=== PATIENT | female | born 1935 | race Hispanic/Latino ===

== ENCOUNTER 2018-05-21 11:03 | Outpatient (CLI) | payer MEDICARE, MEDICAID ==
--- NOTE | 2018-05-21 12:20 | RAD ---
TWO VIEWS OF THE CHEST: Comparison: 12-13-15 History: Dyspnea. FINDINGS: Two views of the chest shows a normal sized cardiomediastinal silhouette. There is no evidence of con solidation, mass, or pleural effusion. The bones are unremarkable. IMPRESSION: No evidence of acute cardiopulmonary disease. POS: [facility]
== END 2018-05-21 11:04 | disposition home or self-care (01) ==
LOC: RAD 11:03
PROVIDERS: ATTEND Internal Medicine Critical Care Medicine
DX: R06.00 Dyspnea, unspecified (principal)
CPT/HCPCS: 71046

== ENCOUNTER 2020-11-07 14:49 | Observation (INO) | payer MEDICARE, OTHER ==
[~2020-11-07 14:49] MED LIST: Iopamidol-370 76% 500 ML 1 ML ONE
--- NOTE | 2020-11-07 15:48 | RAD ---
XR Chest 1 View Portable HISTORY: Dyspnea COMPARISON: 05/21/2018 FINDINGS: The heart size is normal. The aorta is tortuous. The lungs are well expanded without focal areas of consolidation, pneumothorax or pleural effusions. IMPRESSION: No radiographic evidence of acute cardiopulmonary process.
[2020-11-07 16:31] LABS: #Basophils 0.1 thou/uL (0.0-0.2); #Eosinphils 0.1 thou/uL (0.0-0.7); #Lymphocytes 1.6 thou/uL (1.20-3.40); #Monocytes 0.4 thou/uL (0.11-0.59); #Neutrophils 3.4 thou/uL (1.40-6.50); %Eosinophils 2.3 % (0.0-10.0); %Lymphocytes 28.7 % (21.0-51.0); %Monocytes 6.3 % (0.0-10.0); %Neutrophils 61.7 % (42.0-75.0); Hemoglobin 15.7 g/dL (12.0-16.0); Mean Corpuscular HGB CONC 35.6 g/dL (32.0-36.0); Mean Corpuscular Hemoglobin 34.5 pg (27.0-31.0); Mean Corpuscular Volume 96.9 fL (78.0-98.0); Mean Platelet Volume 6.7 fL (7.4-10.4); Platelet Count 242 thou/uL (130-400); RBC Distribution Width 11.4 % (11.5-14.5); Red Blood Cell (RBC) Count 4.55 mill/uL (4.20-5.40); White Blood Cell (WBC) Count 5.6 thou/uL (4.8-10.8)
[2020-11-07 16:59] LABS: ALT (SGPT) 9 U/L (8-55); AST (SGOT) 17 U/L (5-34); Albumin 4.1 g/dL (3.4-4.8); Alkaline Phosphatase 86 U/L (40-110); Anion Gap 13 mmol/L (10-20); BUN (Urea Nitrogen) 10 mg/dL (9.8-20.1); Bilirubin, Total 0.5 mg/dL (0.2-1.2); Calc. Creatinine Clearance 0 mL/min (70-130); Carbon Dioxide 32 mmol/L (23-31); Chloride 97 mmol/L (98-107); Globulin 3.1 g/dL (2.4-3.5); Glucose 101 mg/dL (83-110); Potassium 3.6 mmol/L (3.5-5.1); Protein, Total 7.2 g/dL (5.8-8.1); Sodium 138 mmol/L (136-145)
[2020-11-07 17:21] LABS: CKMB 1.4 ng/mL (0-6.6)
[2020-11-07 18:32] LABS: Bilirubin Negative (Negative); Blood, Urine Negative (Negative); Clarity Clear (Clear); Glucose, Urine (Dipstick) Normal (Negative); Ketone, Urine Negative (Negative); Leukocyte Negative Leu/uL (Negative); Nitrite Negative (Negative); Protein, Urine (Dipstick) 10 mg/dL (Neg-Trace); Specific Gravity, Urine 1.014 (1.002-1.036); Urobilinogen 3 mg/dL (Less than 2)
--- NOTE | 2020-11-07 21:08 | CT ---
CT Brain WO Con: 11/07/2020 8:45 PM CLINICAL HISTORY: Weakness and falls. IMAGING TECHNIQUE: Multiple CT images were obtained of the brain without IV contrast. COMPARISON: CT the brain without contrast dated April 17, 2018 FINDINGS: BRAIN: Evidence of acute infarct: None. Evidence of chronic ischemic change:There is moderate chronic small vessel white matter ischemic fritz ge. There are tiny remote appearing lacunar infarctions involving basal ganglia bilaterally which appears stable Evidence of intracranial hemorrhage: None. Evidence of brain volume loss:Mild generalized cerebral atrophy is similar Evidence of midline shift: Third ventricle and septum pellucidum are midline. Ventricles: Normal. No hydrocephalus. SKULL: Intact. VISUALIZED PARANASAL SINUSES: Small air-fluid level is present within the right sphenoid sinus. MASTOID AIR CELLS: Clear. EXTRACRANIAL SOFT TISSUES: Normal. IMPRESSION: 1. No acute intracranial abnormality. 2. Small air-fluid level within the right sphenoid sinus may reflect mild sphenoid sinusitis. 3. Chronic ischemic change as above.
--- NOTE | 2020-11-07 21:36 | CT ---
CT OF THE ABDOMEN AND PELVIS WITH IV CONTRAST INDICATION: 85-year-old female with vomiting and weakness COMPARISON: Pelvic ultrasound dated August 30, 2016 FINDINGS: ABDOMEN: Lung bases: There is mild subsegmental volume loss within both lower lobes, left greater than right Liver: No focal lesion. Gallbladder: Surgically absent Pancreas: Normal. Adrenal glands: Normal. Spleen: Normal. Kidneys and ureters: There are tiny hypodensities involving the kidney suspicious for tiny cysts. No hydronephrosis. Vasculature: There are severe vascular calcifications seen involving the visualized vasculature. Ther e is a 1 cm splenic artery aneurysm involving the mid splenic artery on image 32 of series 2. There is mild ectasia involving the distal abdominal aorta measuring 2.7 cm. Lymph nodes:No lymphadenopathy. Free fluid in abdomen:No free fluid is evident. PELVIS: Small and large bowel: There are scattered colonic diverticulosis without evidence of active divertic ulitis. There is a mild amount retained stool within the colon. Appendix:Normal Bladder: Normal. Rectal and perirectal soft tissues:Normal. Reproductive structures: The uterus is surgically absent. The adnexa are not definitely seen. There i s a slightly hypodense cystlike lesion involving the right hemipelvis, adjacent to the right posterior lateral aspect of the bladder measuring 6.9 x 5 5 cm. Free fluid in pelvis: No free fluid is evident. Lymphadenopathy pelvis: No lymphadenopathy is evident. Osseous structures: No acute osseous abnormality. No destructive osteolytic or osteoblastic lesion i s identified. There is levoscoliosis of the lumbar spine. No acute fracture or subluxation is demonstrated. There is scattered degenerative and osteoarthritic change present. Soft tissues:Normal. IMPRESSION: 1. Large cystlike lesion involving the right hemipelvis, adjacent to the right posterior lateral aspe ct of the bladder. This was not identified on a prior pelvic ultrasound in 2016. Differential considerations include a complex cystic mass of the right adnexa or possibly a diverticulum off the p osterior lateral aspect of the bladder. Further evaluation with pelvic ultrasound is recommended for additional characterization. The uterus is surgically absent. The adnexa are not definitely seen. Recommend correlation with the patient's clinical history of possible hysterectomy and bilateral oophorectomy. 2. Colonic diverticulosis with a mild amount retained stool within the colon. 3. Bilateral renal hypodensities, too small to fully characterize, suspicious for cysts. 4. 1 cm splenic artery aneurysm and mild ectasia of the distal abdominal aorta.
--- NOTE | 2020-11-07 22:03 | PDOC.HHP ---
Hospitalist HPI Generalized weakness History of Present Illness: Majority of the H&P was taken from the ER documentation due to the patient's past medical history of dementia. The patient is an 85-year-old female with a past medical history significant for CAD, HTN, HLD, CVA (2016), emphysema, chronic back pain, polymyalgia rheumatica, dementia and anxiety and depression that presents to the emergency department for the above complaint. The patient comes with a chief complaint of generalized weakness. There is reports of na usea without vomiting or abdominal pain. Per the triage documentation, the patient may have been hypoxic at home. However, the patient presented to the emergency department with oxygen saturation ranging from 98 to 100% on room air. ED Course: VITAL SIGNS SatNov 07, 2020 14:51 MELVINA Keene Katelyn BP: 130/65, Resp: 28, Temp: 98.1 (Oral), O2 sat: 93 on (Room Air), Time: 11/07/2020 14:51. VITAL SIGNS SatNov 07, 2020 14:56 MELVINA Keene Katelyn Resp: 24, Pain: 0, Time: 11/07/2020 14:56. VITAL SIGNS SatNov 07, 2020 15:25 MELVINA Win Jenifer BP: 136/68, Pulse: 68, Resp: 24, Pain: 0, O2 sat: 100 on (Room Air), Time: 11/07/2020 15:25. VITAL SIGNS SatNov 07, 2020 18:22 MELVINA Mas Nazish BP: 164/71, Pulse: 70, Resp: 19, Temp: 98.4 (Oral), Pain: 0, O2 sat: 100 on (Room Air), Time: 11/07/2020 18:22. VITAL SIGNS SatNov 07, 2020 19:31 MELVINA Mas Nazish BP: 151/73, Pulse: 67, Resp: 19, Temp: 98.2 (Oral), Pain: 0, O2 sat: 100 on (Room Air), Time: 11/07/2020 19:31. EKG normal sinus rhythm with LVH. Initial troponin 0.039, BNP 65 CXR no acute process CT brain negative for any acute process CT abdomen and pelvis showed cystlike lesion in the right hemipelvis, recommends ultrasound CMP, UA and CBC unremarkable Medications: 1L NS Allergies/Adverse Reactions: Allergy/AdvReac Type Severity Reaction Status Date / Time ibuprofen Allergy Verified 12/06/19 11:35 Home Medications: Medication Instructions Recorded Confirmed Type ALPRAZolam [Xanax] 0.25 mg PO TID PRN 04/24/16 04/17/18 History Budesonide-Formoterol [Symbicort 2 puff INH BID 04/24/16 04/17/18 History 160-4.5] Clopidogrel Bisulfate [Clopidogrel] 75 mg PO DAILY 04/24/16 04/17/18 History DULoxetine HCl 60 mg PO BID 04/24/16 04/17/18 History Gabapentin 300 mg PO TID 04/24/16 04/17/18 History Zolpidem Tartrate 10 mg PO HS 04/24/16 04/17/18 History Donepezil HCl [Aricept] 10 mg PO HS 04/17/18 04/17/18 History OLANZapine [Olanzapine] 15 mg PO HS 04/17/18 04/17/18 History traZODone HCl [Trazodone HCl] 100 mg PO HS PRN 04/17/18 04/17/18 History Amoxicillin/Potassium Clav 875 mg PO Q12HR #10 tab 04/20/18 Rx [Augmentin] Aspirin 325 mg PO DAILY #0 04/20/18 04/17/18 Rx Famotidine [Pepcid] 20 mg PO BID #60 tab 04/20/18 Rx Saccharomyces boulardii [Florastor] 250 mg PO DAILY #5 cap 04/20/18 Rx Ventolin HFA Inhaler 2 puff INH Q6HR PRN #1 inh 04/20/18 Rx guaiFENesin ER [Mucinex] 600 mg PO Q12HR #10 tab 04/20/18 Rx predniSONE 20 mg PO QAM-WM #5 tab 04/20/18 Rx Past History: PMHx: CAD, HTN, HLD, CVA (2016), emphysema, chronic back pain, polymyalgia rheumatica, dementia, anxiety and depression PSHx: Cholecystectomy, hysterectomy, oophorectomy FHx: Noncontributory to this case Social: 1 pack/day smoker x30 years. No heavy alcohol intake or illicit drug use. Hospitalist HPI ROS ROS unobtainable: due to mental status All other systems reviewed; all pertinent +/- noted in HPI/Subj Hospitalist Exam General Appearance: NAD, awake alert. negative: ill appearing General - other findings: Appears comfortable Eye: anicteric sclera ENT: normocephalic atraumatic, moist mucosa Neck: supple, no lymphadenopathy Heart: RRR, no murmur, no gallops, no rubs, normal peripheral pulses Respiratory: CTAB, no wheezes, no rales, no ronchi, no tachypnea Respiratory - other findings: Diminished lower lobes Gastrointestinal: soft, non-distended, normal bowel sounds, no guarding, no rigidity, tender to palpation (Mild tenderness to palpation of right lower quadrant) Gastrointestinal - other findings: No rebound tenderness, negative Rovsing sign, negative Falk sign Extremities: no cyanosis, no edema Skin: no rashes Psychiatric: normal affect, oriented to person (And date of ). negative: oriented to place (Poor historian) Hospitalist Results Result Diagrams: 11/07/20 16:10 11/07/20 16:10 Lab results: Laboratory Last Values WBC 5.6 thou/uL (4.8-10.8) 11/07/20 16:10 RBC 4.55 mill/uL (4.20-5.40) 11/07/20 16:10 Hgb 15.7 g/dL (12.0-16.0) 11/07/20 16:10 Hct 44.2 % (36.0-47.0) 11/07/20 16:10 MCV 96.9 fL (78.0-98.0) 11/07/20 16:10 MCH 34.5 pg (27.0-31.0) H 11/07/20 16:10 MCHC 35.6 g/dL (32.0-36.0) 11/07/20 16:10 RDW 11.4 % (11.5-14.5) L 11/07/20 16:10 Plt Count 242 thou/uL (130-400) 11/07/20 16:10 MPV 6.7 fL (7.4-10.4) L 11/07/20 16:10 Neutrophils % 61.7 % (42.0-75.0) 11/07/20 16:10 Lymphocytes % 28.7 % (21.0-51.0) 11/07/20 16:10 Monocytes % 6.3 % (0.0-10.0) 11/07/20 16:10 Eosinophils % 2.3 % (0.0-10.0) 11/07/20 16:10 Basophils % 1.0 % (0.0-1.0) 11/07/20 16:10 Neutrophils # 3.4 thou/uL (1.40-6.50) 11/07/20 16:10 Lymphocytes # 1.6 thou/uL (1.20-3.40) 11/07/20 16:10 Monocytes # 0.4 thou/uL (0.11-0.59) 11/07/20 16:10 Eosinophils # 0.1 thou/uL (0.0-0.7) 11/07/20 16:10 Basophils # 0.1 thou/uL (0.0-0.2) 11/07/20 16:10 Sodium 138 mmol/L (136-145) 11/07/20 16:10 Potassium 3.6 mmol/L (3.5-5.1) 11/07/20 16:10 Chloride 97 mmol/L (98-107) L 11/07/20 16:10 Carbon Dioxide 32 mmol/L (23-31) H 11/07/20 16:10 Anion Gap 13 mmol/L (10-20) 11/07/20 16:10 BUN 10 mg/dL (9.8-20.1) 11/07/20 16:10 Creatinine 0.74 mg/dL (0.6-1.1) 11/07/20 16:10 Estimated GFR (MDRD) 75 11/07/20 16:10 Glucose 101 mg/dL (83-110) 11/07/20 16:10 Calcium 9.0 mg/dL (7.8-10.44) 11/07/20 16:10 Total Bilirubin 0.5 mg/dL (0.2-1.2) 11/07/20 16:10 AST 17 U/L (5-34) 11/07/20 16:10 ALT 9 U/L (8-55) 11/07/20 16:10 Alkaline Phosphatase 86 U/L (40-110) 11/07/20 16:10 CK-MB (CK-2) 1.4 ng/mL (0-6.6) 11/07/20 16:10 Troponin I 0.039 ng/mL (< 0.028) H 11/07/20 16:10 B-Natriuretic Peptide 65.5 pg/mL (0-100) 11/07/20 16:10 Serum Total Protein 7.2 g/dL (5.8-8.1) 11/07/20 16:10 Albumin 4.1 g/dL (3.4-4.8) 11/07/20 16:10 Globulin 3.1 g/dL (2.4-3.5) 11/07/20 16:10 Albumin/Globulin Ratio 1.3 g/dL (1.2-2.2) 11/07/20 16:10 Urine Color Yellow (Yellow) 11/07/20 17:49 Urine Clarity Clear (Clear) 11/07/20 17:49 Urine pH 8.0 (5.0-9.0) 11/07/20 17:49 Ur Specific [place] 1.014 (1.002-1.036) 11/07/20 17:49 Urine Protein 10 mg/dL (Neg-Trace) 11/07/20 17:49 Urine Glucose (UA) Normal mg/dL (Negative) 11/07/20 17:49 Urine Ketones Negative mg/dL (Negative) 11/07/20 17:49 Urine Blood Negative (Negative) 11/07/20 17:49 Urine Nitrite Negative (Negative) 11/07/20 17:49 Urine Bilirubin Negative (Negative) 11/07/20 17:49 Urine Urobilinogen 3 mg/dL (Less than 2) A 11/07/20 17:49 Ur Leukocyte Esterase Negative Jailyn/uL (Negative) 11/07/20 17:49 Chest x-ray Status: report reviewed by me Additional Comments: IMPRESSION: No radiographic evidence of acute cardiopulmonary process. CT scan - head Status: report reviewed by me Additional Comments: IMPRESSION: 1. No acute intracranial abnormality. 2. Small air-fluid level within the right sphenoid sinus may reflect mild sphenoid sinusitis. 3. Chronic ischemic change as above CT scan - Ab/Pelvis Status: report reviewed by me Additional Comments: IMPRESSION: 1. Large cystlike lesion involving the right hemipelvis, adjacent to the right posterior lateral aspect of the bladder. This was not identified on a prior pelvic ultrasound in 2016. Differential considerations include a complex cystic mass of the right adnexa or possibly a diverticulum off the posterior lateral aspect of the bladder. Further evaluation with pelvic ultrasound is recommended for additional characterization. The uterus is surgically absent. The adnexa are not definitely seen. Recommend correlation with the patients clinical history of possible hysterectomy and bilateral oophorectomy. 2. Colonic diverticulosis with a mild amount retained stool within the colon. 3. Bilateral renal hypodensities, too small to fully characterize, suspicious for cysts. 4. 1 cm splenic artery aneurysm and mild ectasia of the distal abdominal aorta. EKG Status: image reviewed by me Additional Comments: Normal sinus rhythm, LVH Hospitalist H&P A/P (1) Elevated troponin Code(s): R77.8 - OTHER SPECIFIED ABNORMALITIES OF PLASMA PROTEINS Status: Acute (2) Pelvic mass Code(s): R19.00 - INTRA-ABD AND PELVIC SWELLING, MASS AND LUMP, UNSP SITE Status: Acute (3) Generalized weakness Code(s): R53.1 - WEAKNESS Status: Acute (4) CAD (coronary artery disease) Code(s): I25.10 - ATHSCL HEART DISEASE OF [place] CORONARY ARTERY W/O ANG PCTRS Status: Chronic Qualifiers: Coronary Disease-Associated Artery/Lesion type: [place] artery [place] vs. transplanted heart: [place] heart Associated angina: without angina Qualified Code(s): I25.10 - Atherosclerotic heart disease of [place] coronary artery without angina pectoris (5) CVA (cerebral vascular accident) Code(s): I63.9 - CEREBRAL INFARCTION, UNSPECIFIED Status: Chronic (6) Polymyalgia rheumatica Code(s): M35.3 - POLYMYALGIA RHEUMATICA Status: Chronic (7) Dementia Code(s): F03.90 - UNSPECIFIED DEMENTIA WITHOUT BEHAVIORAL DISTURBANCE Status: Chronic (8) Anxiety and depression Code(s): F41.9 - ANXIETY DISORDER, UNSPECIFIED; F32.9 - MAJOR DEPRESSIVE DISORDER, SINGLE EPISODE, UNSPECIFIED Status: Chronic (9) Emphysema of lung Code(s): J43.9 - EMPHYSEMA, UNSPECIFIED Status: Chronic (10) Chronic back pain Code(s): M54.9 - DORSALGIA, UNSPECIFIED; G89.29 - OTHER CHRONIC PAIN Status: Chronic (11) HTN (hypertension) Code(s): I10 - ESSENTIAL (PRIMARY) HYPERTENSION Status: Chronic (12) HLD (hyperlipidemia) Code(s): E78.5 - HYPERLIPIDEMIA, UNSPECIFIED Status: Chronic Plan: The patient with CAD, polymyalgia rheumatica, dimension, history of CVA, eczema presents for generalized weakness and possibly hypoxic at home. Presented mildly tachypneic, SPO2 WNL. EKG NSR. CT brain negative. CT abdomen pelvis shows right hemipelvis cystlike lesion. Initial troponin 0.39. CMP, CBC and UA unremarkable. #Elevated troponin Appears baseline upon reviewing records. No documented chest pain. Trend troponins, check TSH, FLP, mag level and lipase. #Pelvic mass CT shows large cystlike lesion involving the right hemipelvis adjacent to right posterior lateral aspect of bladder. Recommends pelvic ultrasound. Upon assessment, mildly tender to palpation right lower quadrant. Order pelvic ultrasound. #General weakness Unclear etiology at this time. Upon assessment, patient feels comfortable, MAEW. #CAD Review previous home med list, takes amlodipine, aspirin and Plavix. Will restart home medications when reconciled by nursing. #CVA Chronic, stable (2016) #Polymyalgia rheumatica Chronic. Previously on chronic steroids. We will restart home medications when reconciled by nursing. #Dementia Unknown baseline. Upon assessment ANO x2, follows commands. Previous home med list, donepezil. Restart home medications when reconciled by nursing. #Anxiety and depression Previous home med list shows duloxetine, Abilify, olanzapine. Restart home meds when reconciled by nursing. SCDs for DVT prophylaxis. Pepcid for GI prophylaxis. CODE STATUS full code. Her son, Yayo Sandhu is contact, however, I was unable to speak with him via telephone at the number listed which is [phone]. Discussed case with attending physician, Dr. Aguilar, who agrees with plan of care.
[2020-11-07] MEDS ORDERED: Acetaminophen 325 MG TAB PO PRN (22:44)
[2020-11-07] MEDS ORDERED: Ondansetron ODT 4 MG TAB PO PRN (22:44)
[2020-11-07 22:58] LABS: Troponin I 0.044 ng/mL (< 0.028)
[2020-11-08 01:58] LABS: Troponin I 0.039 ng/mL (< 0.028)
[2020-11-08] MEDS ORDERED: traZODone HCl 50 MG TAB PO SCH (02:30)
[2020-11-08 02:36] VITALS: BMI 21.7
[2020-11-08 05:16] LABS: SARS-CoV-2 PCR by NAA Not Detected (NotDetected)
[2020-11-08 06:12] LABS: #Basophils 0.1 thou/uL (0.0-0.2); #Eosinphils 0.2 thou/uL (0.0-0.7); #Monocytes 0.4 thou/uL (0.11-0.59); #Neutrophils 3.6 thou/uL (1.40-6.50); %Basophils 1.6 % (0.0-1.0); %Eosinophils 2.5 % (0.0-10.0); %Lymphocytes 31.5 % (21.0-51.0); %Monocytes 6.1 % (0.0-10.0); %Neutrophils 58.4 % (42.0-75.0); Hemoglobin 14.7 g/dL (12.0-16.0); Mean Corpuscular HGB CONC 35.2 g/dL (32.0-36.0); Mean Corpuscular Hemoglobin 34.3 pg (27.0-31.0); Mean Corpuscular Volume 97.5 fL (78.0-98.0); Mean Platelet Volume 6.7 fL (7.4-10.4); Platelet Count 217 thou/uL (130-400); RBC Distribution Width 11.3 % (11.5-14.5); Red Blood Cell (RBC) Count 4.28 mill/uL (4.20-5.40); White Blood Cell (WBC) Count 6.2 thou/uL (4.8-10.8)
[2020-11-08 06:30] LABS: Anion Gap 11 mmol/L (10-20); BUN (Urea Nitrogen) 7 mg/dL (9.8-20.1); Calc. Creatinine Clearance 52 mL/min (70-130); Calcium 8.7 mg/dL (7.8-10.44); Carbon Dioxide 31 mmol/L (23-31); Cardiac Risk 4.2 (Less than 4.5); Chloride 99 mmol/L (98-107); Cholesterol 138 mg/dl (< 200 Desired); Glucose 94 mg/dL (83-110); HDL Cholesterol 33 mg/dL (>60 Neg Risk); LDL Cholesterol, Calculated 79 mg/dL; Magnesium 2.1 mg/dL (1.6-2.6); Potassium 3.3 mmol/L (3.5-5.1); Sodium 138 mmol/L (136-145); Triglycerides 130 mg/dL (Less than 150)
[2020-11-08] MEDS ORDERED: Famotidine 20 MG TAB ONE (07:59)
[2020-11-08] MEDS ORDERED: Famotidine 20 MG TAB PO SCH (09:00)
--- NOTE | 2020-11-08 10:35 | ULT ---
Transabdominal pelvic ultrasound: 11/08/2020 HISTORY: Vomiting and weakness, lesion within the right hemipelvis noted on prior CT. TECHNIQUE: Multiplanar grayscale sonographic imaging of the pelvis is obtained with transabdominal im aging. FINDINGS: The uterus is surgically absent. The left ovary could not be visualized on this exam. No free fluid is seen in the pelvis. Within the right hemipelvis there is an oval hypoechoic lesion with increased through transmission an d no internal blood flow suggesting a nonspecific right adnexal cystic lesion measuring 7.1 x 4.0. This lesion is assessed with Doppler interrogation including color flow and spectral analysis and the re is venous and arterial blood flow around the periphery of this lesion which may signify ovarian tissue. IMPRESSION: Cystic lesion within the right hemipelvis measuring up to 7.1 cm, suspicious for a cystic ovarian lesion. 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 Recommend REGISTERED RESPIRATORY TECHNICIAN consultation. MERCEDES T
[2020-11-08] MEDS ORDERED: Potassium Chloride 20 MEQ TAB PO SCH (12:30)
--- NOTE | 2020-11-08 12:55 | PDOC.DS.DS ---
Provider Date of Admission: 11/07/20 22:11 Date of Discharge: 11/08/20 Admitting Provider: Bin Aguilar MD Primary Care Physician: Liudmila Noe MD Course Hospital Course: Discharge diagnosis: 1. Generalized weakness 2. Cystic ovarian mass 3. COVID-19 test negative 4. Hypokalemia 5. Troponin in the indeterminate range, no chest pain Hospital course: Patient is a pleasant 85-year-old lady who was admitted to the hospital on observation status on November 07, 2020 for generalized weakness. Per the triads documentation, patient may have been hypoxic at home. However, patient's oxygen saturation was good in the emergency room. She was seen by physical therapy service. She mainly needed assistance getting out of the bed but otherwise ambulated well. Patient son stays with her in an assisted living facility and is able to help her get out of bed. CT scan of the abdomen and pelvis with IV contrast showed large cystlike lesion involving the right hemipelvis, adjacent to the right posterior lateral aspect of the bladder. This was not identified on a prior pelvic ultrasound in 2016. She also had colonic diverticulosis, bilateral renal hypodensities too small to fully characterize but suspicious for cysts and 1 cm splenic artery aneurysm and mild ectasia of the distal abdominal aorta. She went on to have pelvic ultrasound, which showed cystic lesion within the right hemipelvis measuring up to 7.1 cm, suspicious for cystic ovarian lesion. Lesion of this size in a patient of this age may signify a cystic ovarian neoplasm, according to radiologist. The recommended gynecology consultation. Patient is advised to see gynecology referral through primary care provider. It was unclear what medications patient was taking at home prior to this emergency room visit. Patient was advised to resume her home medications. Patient is being discharged home in a stable condition. Many thanks for allowing me to participate in your patient's care. Please feel free to contact me with any questions or concerns. Resuscitation Status: 11/07/20 22:44 Resuscitation Status Routine Co-Sign Provider: Resuscitation Status: FULL: Full Resuscitation Discussed with: patient Additional comments: Unable to get in contact with patient's sonYayo at list phone number of [phone] Lab Results: 11/08/20 05:48 11/08/20 05:48 Abnormal Lab Results - Last 48 hrs 11/07/20 16:10: Chloride 97 L, Carbon Dioxide 32 H 11/07/20 16:10: Troponin I 0.039 H 11/07/20 16:10: MCH 34.5 H, RDW 11.4 L, MPV 6.7 L 11/07/20 17:49: Urine Urobilinogen 3 A 11/07/20 22:19: Troponin I 0.044 H 11/08/20 01:25: Troponin I 0.039 H 11/08/20 05:48: Potassium 3.3 L, BUN 7 L 11/08/20 05:48: MCH 34.3 H, RDW 11.3 L, MPV 6.7 L, Basophils % 1.6 H Vitals: Vital Signs (12 hours) Pulse Resp BP Pulse Ox 11/08/20 04:19 64 20 145/62 H 94 L Weight Weight 114 lb 10.246 oz Physical Exam: The patient was seen and examined on the day of discharge. Patient denies chest pain or shortness of breath. Vital signs are stable. S1 and S2 are heard. Lungs are clear to auscultation bilaterally. Plan Home Medications: Medication Instructions Recorded Confirmed Type ALPRAZolam [Xanax] 0.25 mg PO TID PRN 04/24/16 04/17/18 History Budesonide-Formoterol [Symbicort 2 puff INH BID 04/24/16 04/17/18 History 160-4.5] Clopidogrel Bisulfate [Clopidogrel] 75 mg PO DAILY 04/24/16 04/17/18 History DULoxetine HCl 60 mg PO BID 04/24/16 04/17/18 History Gabapentin 300 mg PO TID 04/24/16 04/17/18 History Zolpidem Tartrate 10 mg PO HS 04/24/16 04/17/18 History Donepezil HCl [Aricept] 10 mg PO HS 04/17/18 04/17/18 History OLANZapine [Olanzapine] 15 mg PO HS 04/17/18 04/17/18 History traZODone HCl [Trazodone HCl] 100 mg PO HS PRN 04/17/18 04/17/18 History Amoxicillin/Potassium Clav 875 mg PO Q12HR #10 tab 04/20/18 Rx [Augmentin] Aspirin 325 mg PO DAILY #0 04/20/18 04/17/18 Rx Famotidine [Pepcid] 20 mg PO BID #60 tab 04/20/18 Rx Saccharomyces boulardii [Florastor] 250 mg PO DAILY #5 cap 04/20/18 Rx Ventolin HFA Inhaler 2 puff INH Q6HR PRN #1 inh 04/20/18 Rx guaiFENesin ER [Mucinex] 600 mg PO Q12HR #10 tab 04/20/18 Rx predniSONE 20 mg PO QAM-WM #5 tab 04/20/18 Rx Allergies: ibuprofen Allergy (Verified 12/06/19 11:35) Discharge Instructions:: Resume your home medications. Seek referral for gynecology consultation through primary care provider for probable ovarian neoplasm. Referrals: Liudmila Noe MD [Primary Care Provider] - 3 Days Disposition: HOME Quality CORE MEASURES:: N/A
[2020-11-08 13:16] VITALS: BP 151/80; TEMP 97.8
[2020-11-08] MEDS ORDERED: Potassium Chloride 20 MEQ TAB ONE (13:32)
== END 2020-11-08 14:08 | disposition home or self-care (01) ==
LOC: ERS 14:49 → ERHOLD 22:11
PROVIDERS: ADMIT Internal Medicine; ATTEND Internal Medicine
DX: R53.1 Weakness (principal); N83.201 Unspecified ovarian cyst, right side; E87.6 Hypokalemia; R77.8 Other specified abnormalities of plasma proteins; R11.0 Nausea; F03.90 Unspecified dementia, unspecified severity, without behavioral disturbance, psychotic disturbance, mood disturbance, and anxiety; I25.10 Atherosclerotic heart disease of native coronary artery without angina pectoris; I10 Essential (primary) hypertension; E78.5 Hyperlipidemia, unspecified; J43.9 Emphysema, unspecified; G89.29 Other chronic pain; M54.9 Dorsalgia, unspecified; M35.3 Polymyalgia rheumatica; F41.9 Anxiety disorder, unspecified; F32.9 Major depressive disorder, single episode, unspecified; F17.210 Nicotine dependence, cigarettes, uncomplicated; K57.30 Diverticulosis of large intestine without perforation or abscess without bleeding; I72.8 Aneurysm of other specified arteries; I77.811 Abdominal aortic ectasia; Z86.73 Personal history of transient ischemic attack (TIA), and cerebral infarction without residual deficits; Z79.02 Long term (current) use of antithrombotics/antiplatelets; Z79.899 Other long term (current) drug therapy; Z88.6 Allergy status to analgesic agent; Z20.822 Contact with and (suspected) exposure to COVID-19
CPT/HCPCS: 70450; 71045; 74177; 76856; 80048; 80053; 80061; 81003; 82533; 82553; 83690; 83735; 83880; 84443; 84484 ×3; 85025 ×2; 87086; 93005; 97116; 97139 ×3; 99285; G0378 ×2; U0003; U0005; 36415; 87635; Q9967

== ENCOUNTER 2023-04-11 05:09 | Observation (INO) | payer OTHER ==
[2023-04-11] MEDS ORDERED: Nitroglycerin 2% Ointment 1 INCH/1 GM Packet ONE (05:22)
[2023-04-11] MEDS ORDERED: Aspirin 325 MG TAB ONE (05:22)
[2023-04-11 06:04] LABS: Mean Corpuscular HGB CONC 33.9 g/dL (32.0-36.0); Mean Corpuscular Hemoglobin 32.9 pg (27.0-31.0); Mean Corpuscular Volume 97.2 fl (78.0-98.0); Platelet Count 310 10x3/uL (130-400); RBC Distribution Width 14.3 % (11.5-14.5); Red Blood Cell (RBC) Count 3.95 mill/uL (4.20-5.40); White Blood Cell (WBC) Count 6.5 10x3/uL (4.8-10.8)
[2023-04-11 06:05] LABS: #Basophils 0.1 thou/uL (0.0-0.2); #Eosinphils 0.2 thou/uL (0.0-0.7); #Monocytes 0.4 thou/uL (0.11-0.59); #Neutrophils 4.5 thou/uL (1.40-6.50); %Basophils 1.2 % (0.0-1.0); %Eosinophils 2.9 % (0.0-10.0); %Lymphocytes 21.1 % (21.0-51.0); %Monocytes 5.5 % (0.0-10.0); Mean Platelet Volume 8.9 fL (7.4-10.4)
[2023-04-11 06:30] LABS: Calcium 9.6 mg/dL (7.8-10.44); Chloride 99 mmol/L (98-107); Globulin 4.6 g/dL (2.4-3.5); Glucose 99 mg/dL (83-110); Potassium 4.3 mmol/L (3.5-5.1); Protein, Total 8.6 g/dL (5.8-8.1); Sodium 137 mmol/L (136-145)
[2023-04-11 06:31] LABS: ALT (SGPT) 7 U/L (8-55); AST (SGOT) 28 U/L (5-34); Alkaline Phosphatase 91 U/L (40-110); Anion Gap 13 mmol/L (10-20); BUN (Urea Nitrogen) 9 mg/dL (9.8-20.1); Bilirubin, Total 0.7 mg/dL (0.2-1.2); Calc. Creatinine Clearance 0 mL/min (70-130); Carbon Dioxide 29 mmol/L (23-31); Estimated GFR 76
[2023-04-11] MEDS ORDERED: Ondansetron PF 4 MG/2 ML Vial IVP PRN (08:15)
[2023-04-11] MEDS ORDERED: Regadenoson 0.4 MG/5 ML SYRINGE ONE (08:58)
[2023-04-11] MEDS ORDERED: Famotidine 20 MG TAB PO SCH (09:00)
[2023-04-11 10:36] VITALS: BMI 14.0
[2023-04-11] MEDS ORDERED: Albuterol 200 PUFF (6.7GM INHALER) INH PRN (11:34)
[2023-04-11 12:23] LABS: Troponin I Less than 0.010 ng/mL (< 0.028)
[2023-04-11] MEDS: Gabapentin 100 MG CAP PO SCH ×2 (17:23→20:53)
[2023-04-11] MEDS: HYDROcodone/Acetaminophen 10/325 mg Tablet PO PRN (20:51)
[2023-04-11] MEDS: Donepezil HCl 10 MG TAB PO SCH (20:52)
[2023-04-11] MEDS: Atorvastatin Calcium 40 MG TAB PO SCH (20:53)
[2023-04-11] MEDS: DULoxetine 60 MG CAP PO SCH (20:56)
[2023-04-11] MEDS ORDERED: QUEtiapine 25 MG TAB PO SCH (23:59)
[2023-04-12 04:16] LABS: #Basophils 0.1 thou/uL (0.0-0.2); #Eosinphils 0.1 thou/uL (0.0-0.7); #Monocytes 0.4 thou/uL (0.11-0.59); #Neutrophils 4.9 thou/uL (1.40-6.50); %Basophils 0.8 % (0.0-1.0); %Lymphocytes 15.8 % (21.0-51.0); %Monocytes 5.5 % (0.0-10.0); %Neutrophils 75.7 % (42.0-75.0); Hemoglobin 11.3 g/dL (12.0-16.0); Mean Corpuscular HGB CONC 34.5 g/dL (32.0-36.0); Mean Corpuscular Volume 95.9 fl (78.0-98.0); Platelet Count 243 10x3/uL (130-400); RBC Distribution Width 14.1 % (11.5-14.5); Red Blood Cell (RBC) Count 3.42 mill/uL (4.20-5.40); White Blood Cell (WBC) Count 6.5 10x3/uL (4.8-10.8)
[2023-04-12 04:38] LABS: Anion Gap 14 mmol/L (10-20); BUN (Urea Nitrogen) 16 mg/dL (9.8-20.1); Calc. Creatinine Clearance 33 mL/min (70-130); Calcium 9.1 mg/dL (7.8-10.44); Carbon Dioxide 25 mmol/L (23-31); Cardiac Risk 2.9 (Less than 4.5); Chloride 101 mmol/L (98-107); Cholesterol 117 mg/dl (< 200 Desired); Estimated GFR 84; Glucose 114 mg/dL (83-110); HDL Cholesterol 40 mg/dL (>60 Neg Risk); LDL Cholesterol, Calculated 60 mg/dL; Potassium 4.2 mmol/L (3.5-5.1); Sodium 136 mmol/L (136-145); Triglycerides 84 mg/dL (Less than 150)
[2023-04-12] MEDS: DULoxetine 60 MG CAP PO SCH ×2 (08:54→21:25)
[2023-04-12] MEDS: Gabapentin 100 MG CAP PO SCH ×3 (08:54→21:25)
[2023-04-12] MEDS: Famotidine 20 MG TAB PO SCH (08:54)
[2023-04-12] MEDS: Clopidogrel Bisulfate 75 MG TAB PO SCH (08:54)
[2023-04-12] MEDS: Aspirin 325 MG TAB PO SCH (08:54)
[2023-04-12] MEDS ORDERED: Aspirin Chewable 81 MG TAB PO SCH (09:00)
[2023-04-12] MEDS: Acetaminophen 325 MG TAB PO PRN (13:45)
[2023-04-12] MEDS ORDERED: Nicotine 14 MG PATCH TD PRN (20:28)
[2023-04-12] MEDS: Atorvastatin Calcium 40 MG TAB PO SCH (21:25)
[2023-04-12] MEDS: Donepezil HCl 10 MG TAB PO SCH (21:25)
[2023-04-12] MEDS: HYDROcodone/Acetaminophen 10/325 mg Tablet PO PRN (21:26)
[2023-04-13] MEDS: Aspirin 325 MG TAB PO SCH (10:01)
[2023-04-13] MEDS: DULoxetine 60 MG CAP PO SCH (10:01)
[2023-04-13] MEDS: Famotidine 20 MG TAB PO SCH (10:02)
[2023-04-13] MEDS: Gabapentin 100 MG CAP PO SCH (10:02)
[2023-04-13] MEDS: Acetaminophen 325 MG TAB PO PRN (10:02)
[2023-04-13] MEDS: Clopidogrel Bisulfate 75 MG TAB PO SCH (10:02)
[2023-04-13 13:09] VITALS: BP 135/64; TEMP 97.1
== END 2023-04-13 15:00 | disposition home or self-care (01) ==
LOC: ERS 05:09 → 2NO 07:47
PROVIDERS: ADMIT Internal Medicine; ATTEND Hospitalist
DX: R07.9 Chest pain, unspecified (principal); M54.50 Low back pain, unspecified; R51.9 Headache, unspecified; I25.10 Atherosclerotic heart disease of native coronary artery without angina pectoris; F41.9 Anxiety disorder, unspecified; F32.A Depression, unspecified; R53.1 Weakness; E78.5 Hyperlipidemia, unspecified; I10 Essential (primary) hypertension; Z88.6 Allergy status to analgesic agent; Z79.02 Long term (current) use of antithrombotics/antiplatelets; Z90.49 Acquired absence of other specified parts of digestive tract; Z90.710 Acquired absence of both cervix and uterus; Z90.721 Acquired absence of ovaries, unilateral; Z79.899 Other long term (current) drug therapy
CPT/HCPCS: 71045; 78452; 80048; 80053; 80061; 83880; 84484 ×2; 85025 ×2; 93005; 93017; 94760; 96372 ×3; 97110; 97530; 99285; A9500; G0378 ×4; 36415; J1650; J2785

== ENCOUNTER 2024-09-15 12:24 | Inpatient (IN) | payer MEDICAID, MEDICARE, OTHER ==
[2024-09-15 14:06] LABS: #Basophils 0.07 10x3/uL (0.0-0.2); #Eosinophils Less than 0.03 10x3/uL (0.0-0.7); %Basophils 0.6 % (0.0-1.0); %Eosinophils 0.2 % (0.0-10.0); %Lymphocytes 8.2 % (21.0-51.0); %Monocytes 4.9 % (0.0-10.0); %Neutrophils 85.5 % (42.0-75.0); Hematocrit 34.8 % (36.0-47.0); Hemoglobin 11.8 g/dL (12.0-16.0); Mean Corpuscular HGB CONC 33.9 g/dL (32.0-36.0); Mean Corpuscular Hemoglobin 31.7 pg (27.0-31.0); Mean Corpuscular Volume 93.5 fL (78.0-98.0); Mean Platelet Volume 8.7 fL (7.4-10.4); Platelet Count 292 10x3/uL (130-400); RBC Distribution Width 12.9 % (11.5-14.5); Red Blood Cell (RBC) Count 3.72 mill/uL (4.20-5.40)
[2024-09-15 14:27] LABS: ALT (SGPT) 6 U/L (8-55); AST (SGOT) 14 U/L (5-34); Albumin 3.1 g/dL (3.4-4.8); Alkaline Phosphatase 93 U/L (40-110); Anion Gap 22 mmol/L (10-20); BUN (Urea Nitrogen) 32 mg/dL (9.8-20.1); Bilirubin, Total 1.7 mg/dL (0.2-1.2); Calc. Creatinine Clearance 0 mL/min (70-130); Calcium 9.2 mg/dL (7.8-10.44); Carbon Dioxide 17 mmol/L (23-31); Chloride 107 mmol/L (98-107); Estimated GFR 79; Globulin 5.4 g/dL (2.4-3.5); Glucose 107 mg/dL (83-110); Potassium 3.4 mmol/L (3.5-5.1); Protein, Total 8.5 g/dL (5.8-8.1); Sodium 143 mmol/L (136-145)
[2024-09-15 14:29] LABS: Troponin I 0.044 ng/mL (< 0.028)
[2024-09-15 18:52] LABS: Lactic Acid 1.71 mmol/L (0.5-2.2)
[2024-09-15] MEDS ORDERED: Bisacodyl 10 MG SUPP PR PRN (22:28)
[2024-09-15 22:40] VITALS: BMI 180.0
[2024-09-15] MEDS: Morphine 2 MG/ML VIAL SLOW IVP PRN (22:50)
[2024-09-16] MEDS: Lorazepam 2 MG/ML VIAL SLOW IVP SCH (01:22)
[2024-09-18] MEDS: Scopolamine 1 mg/72 hour Patch TOP PRN (09:08)
[2024-09-21] MEDS ORDERED: Morphine 20 MG/ML Oral Solution (ROXANOL) SL PRN (11:36)
[2024-09-21] MEDS ORDERED: Morphine 10 MG/0.5 ML ORAL SYRINGE SL PRN (12:41)
[2024-09-21] MEDS: Lorazepam 1 MG TAB PO SCH (14:23)
[2024-09-21] MEDS: Morphine 20 MG/ML Oral Solution (ROXANOL) SL SCH (14:24)
[2024-09-21] MEDS: Morphine 10 MG/0.5 ML ORAL SYRINGE SL SCH (17:35)
[2024-09-22 08:19] VITALS: BP 58/43; TEMP 98.3
== END 2024-09-22 12:22 | disposition hospice, inpatient (51) | DRG 951 ==
LOC: ERS 12:24 → T4-B 20:38
PROVIDERS: ADMIT Family Medicine; ATTEND Family Medicine
PROC: 5A0935A Assistance with Respiratory Ventilation, Less than 24 Consecutive Hours, High Flow/Velocity Cannula (ICD-10-PCS; principal; 2024-09-16)
DX: Z51.5 Encounter for palliative care (principal); J96.22 Acute and chronic respiratory failure with hypercapnia; J96.21 Acute and chronic respiratory failure with hypoxia; I48.20 Chronic atrial fibrillation, unspecified; I10 Essential (primary) hypertension; Z66 Do not resuscitate; E78.5 Hyperlipidemia, unspecified; I25.10 Atherosclerotic heart disease of native coronary artery without angina pectoris; F03.90 Unspecified dementia, unspecified severity, without behavioral disturbance, psychotic disturbance, mood disturbance, and anxiety; F41.8 Other specified anxiety disorders; J43.9 Emphysema, unspecified; I25.2 Old myocardial infarction; Z72.0 Tobacco use; Z91.81 History of falling; Z79.899 Other long term (current) drug therapy; Z88.8 Allergy status to other drugs, medicaments and biological substances; Z90.49 Acquired absence of other specified parts of digestive tract; Z90.79 Acquired absence of other genital organ(s); Z86.73 Personal history of transient ischemic attack (TIA), and cerebral infarction without residual deficits
CPT/HCPCS: 36415; 71045; 80053; 83605; 83880; 84484; 85025; 93005; 94760; J2060; J2272